=== PATIENT | female | born 1955 | race Caucasian/White ===

== ENCOUNTER 2019-08-02 12:56 | Emergency (ER) | payer BC, MEDICARE ==
[2019-08-02 13:15] VITALS: BP 167/89
--- NOTE | 2019-08-02 13:46 | UC ---
Throat Pain/Nasal Edy HPI - HPI Summary HPI Summary: Patient is a 64yo female presenting with worsening cough x2 weeks. Notes sputum production that "feels like it's just sitting in the back of her throat." Notes sore throat, and difficulty sleeping at night because of her cough. Denies headache, nasal congestion, sinus tenderness. Denies fever, chills, n/v/d. Denies body aches. Denies itchy/watery eyes. Notes OTC cough medications are not helping. Denies history of asthma, COPD, or bronchitis. - History of Current Complaint Chief Complaint: UCRespiratory Stated Complaint: cough Hx Obtained From: Patient Onset/Duration: Gradual Onset, Lasting Weeks Severity: Moderate Pain Intensity: 7 Pain Scale Used: 0-10 Numeric - Allergies/Home Medications Allergies/Adverse Reactions: Allergies Allergy/AdvReac Type Severity Reaction Status Date / Time morphine Allergy Palpitation Verified 08/02/19 13:15 s Home Medications: Home Medications Bisoprolol/Hydrochlorothiazide [Bisoprolol-Hctz 2.5-6.25 mg Tb] 1 tab PO DAILY 08/02/19 [History Confirmed 08/02/19] Calcium Carbonate [Calcium/C/D] 1 chw PO DAILY 08/02/19 [History Confirmed 08/02] GuaiFENesin DM* [Robitussin DM*] 5 ml PO Q6H PRN 08/02/19 [History Confirmed ] Iron 90 mg PO DAILY 08/02/19 [History Confirmed 08/02/19] Telmisartan 40 mg PO DAILY 08/02/19 [History Confirmed 08/02/19] PMH/Surg Hx/FS Hx/Imm Hx - Surgical History Surgical History: Yes Surgery Procedure, Year, and Place: hysterectomy, back surgery, toe removed, D&C - Family History Known Family History: Positive: Non-Contributory - Social History Alcohol Use: None Substance Use Type: None Smoking Status (MU): Never Smoked Tobacco Review of Systems All Other Systems Reviewed And Are Negative: Yes Constitutional: Positive: Negative. Negative: Fever, Chills, Fatigue Skin: Positive: Negative Eyes: Positive: Negative. Negative: Drainage, Eye Redness ENT: Positive: Sore Throat. Negative: Ear Ache, Nasal Discharge, Sinus Congestion, Sinus Pain/Tenderness Respiratory: Positive: Cough. Negative: Shortness Of Breath Physical Exam Triage Information Reviewed: Yes Appearance: Well-Appearing, No Pain Distress, Well-Nourished Vital Signs: Initial Vital Signs Temp 98.0 F 08/02/19 13:10 Pulse 83 08/02/19 13:10 Resp 16 08/02/19 13:10 BP 167/89 08/02/19 13:10 Pulse Ox 95 08/02/19 13:10 Vital Signs Reviewed: Yes Eye Exam: Normal Eyes: Positive: Conjunctiva Clear. Negative: Conjunctiva Inflamed, Discharge ENT: Positive: Hearing grossly normal, Pharyngeal erythema, Nasal drainage - PND noted, TMs normal, Uvula midline. Negative: Nasal congestion, TM bulging, TM dull, TM red, Tonsillar swelling, Tonsillar exudate, Hoarse voice, Sinus tenderness Neck exam: Normal Neck: Positive: Supple, Nontender, No Lymphadenopathy Respiratory Exam: Normal Respiratory: Positive: Lungs clear, Normal breath sounds, No respiratory distress, No accessory muscle use Cardiovascular Exam: Normal Cardiovascular: Positive: RRR. Negative: Tachycardia Neurological: Positive: Alert Psychological: Positive: Age Appropriate Behavior Skin Exam: Normal Throat Pain/Nasal Course/Dx - Course Course Of Treatment: Discussed with patient that her symptoms are most likely caused by a post nasal drip and directed her to take over the counter Mucinex or behind the counter Mucinex D along with nasal saline spray to help alleviate congestion and mucus production. Instructed her to take the tessalon perles as prescribed to help alleviate her cough. She may take over the counter pain medications for pain relief. Directed her to follow up with her PCP if symptoms do not resolve in 7 days. Also instructed her to go to the emergency room if she experiences fever, nausea , vomiting, or coughing up blood, or difficulty breathing. - Differential Dx/Diagnosis Provider Diagnosis: Post-nasal drip, Cough Discharge ED - Sign-Out/Discharge Documenting (check all that apply): Patient Departure All imaging exams completed and their final reports reviewed: No Studies - Discharge Plan Condition: Stable Disposition: HOME Prescriptions: Benzonatate CAP* [Tessalon 100 MG CAP*] 100 mg PO TID PRN #[id number] cap PRN Reason: Cough Referrals: Olimpia Ramirez MD [Primary Care Provider] - 7 Days Additional Instructions: As discussed, take the tessalon perles as prescribed to help alleviate your cough. You may take over the counter Mucinex or behind the counter Mucinex D along with nasal saline spray to help alleviate congestion and mucus production. You may take over the counter pain medications for pain relief. Follow up with your primary care physician if your symptoms do not resolve in 7 days. Go to the emergency room if you experience fever, nausea, vomiting, or coughing up blood, or difficulty breathing. - Billing Disposition and Condition Condition: STABLE Disposition: Home
== END 2019-08-02 13:45 | disposition home or self-care (01) ==
LOC: UCEAST 12:56
DX: R09.82 Postnasal drip (principal); R05 Cough; Z88.5 Allergy status to narcotic agent
CPT/HCPCS: 99212; G0463